=== PATIENT | female | born 1990 | race African-American/Black ===

== ENCOUNTER 2016-10-31 11:09 | Observation (INO) | payer MEDICAID ==
[~2016-10-31] VITALS: Ht 152.4 cm; Wt 61.7 kg
[2016-10-31] MEDS ORDERED: SODIUM CHLORIDE 0.9% 1,000 ML IVB ONE (12:14)
[2016-10-31] MEDS ORDERED: KETOROLAC TROMETH 30 MG/ML 1ML VIAL IV ONE (12:15)
[2016-10-31 12:25] LABS: Basophils # (auto) 0 uL; Basophils % (auto) 0.3 % (0.0-2.0); Eosinophils # (auto) 0 uL; Eosinophils % (auto) 0.2 % (0.0-7.0); Hematocrit 47.8 % (36.0-46.0); Hemoglobin 15.6 g/dL (12.2-16.2); Lymphocytes # (auto) 1.3 uL; Mean Corpuscular Hemoglobin 28.6 pg (28.0-32.0); Mean Corpuscular Hgb Conc. 32.7 g/dL (32.0-36.0); Mean Corpuscular Volume 87.7 fL (80.0-100.0); Mean Platelet Volume 9.9 fL (7.4-10.4); Monocytes # (auto) 0.4 uL; Monocytes % (auto) 3.6 % (0.0-12.0); Neutrophils % (auto) 82.9 % (37.0-80.0); Platelet Count (auto) 262 10^3/uL (140-450); Red Cell Distribution Width 14.6 % (11.6-16.0); White Blood Cell 9.7 10^3/uL (4.4-10.8)
[2016-10-31 12:30] LABS: Urine Bilirubin Negative (Negative); Urine Blood Negative /uL (Negative); Urine Color Yellow (Yellow); Urine Glucose Normal (Normal); Urine Mucus FEW (None Seen); Urine Nitrite Negative (Negative); Urine RBC 1 /hpf (0 - 4); Urine Squamous Epithelial Cell FEW /hpf (<5)
[2016-10-31 12:33] LABS: Urine Ketone 2+ (Negative)
[2016-10-31 12:43] LABS: Magnesium 2.2 mg/dL (1.6-2.6)
[2016-10-31 12:45] LABS: Albumin 4.3 g/dL (3.4-5.0); Calcium 9.3 mg/dL (8.5-10.1); Potassium 3.5 mmol/L (3.5-5.1)
[2016-10-31 12:47] LABS: BUN/Creatinine Ratio 14.9
[2016-10-31 12:49] LABS: Bilirubin, Total 0.7 mg/dL (0.2-1.0); Total Protein 8.4 g/dL (6.4-8.2)
[2016-10-31 12:51] LABS: INR 1.04 (0.9-1.15); Partial Thromboplastin Time 29.6 sec (22.64-33.71); Prothrombin Time 11.2 sec (9.37-12.3)
[2016-10-31 13:43] VITALS: BP 131/73
== END 2016-10-31 14:48 | disposition home or self-care (01) | DRG 251 ==
LOC: ER 11:09 → OVERFLOW 11:40 → ER 14:46
PROVIDERS: ADMIT Family Medicine; ATTEND Family Medicine
DX: R10.9 Unspecified abdominal pain (principal); F17.210 Nicotine dependence, cigarettes, uncomplicated; R39.15 Urgency of urination
CPT/HCPCS: 36415; 74176; 80053; 81001; 82150; 83690; 83735; 85025; 85610; 85730; 96361; 96374; 99285; G0378; J1885; J7030